=== PATIENT | female | born 1990 | race Two or more races ===

== ENCOUNTER 2024-09-21 18:50 | Emergency (ER) | payer OTHER ==
[~2024-09-21] VITALS: Ht 152.4 cm; Wt 72.6 kg
[2024-09-21] MEDS ORDERED: EYE DROPS15 ML (19:10)
[2024-09-21] MEDS ORDERED: 0.9 % SODIUM CHLORIDE 1,000 ML IV ONE (20:15)
[2024-09-21] MEDS ORDERED: FAMOtidine 10 MG/ML (4ML VIAL) IV ONE (20:15)
[2024-09-21] MEDS ORDERED: ONDANSETRON HCL 2 MG/ML VIAL IV ONE (20:15)
[2024-09-21] MEDS ORDERED: ONDANSETRON HCL 2 MG/ML VIAL ONE (20:32)
[2024-09-21] MEDS ORDERED: FAMOTIDINE/PF 20 MG/2 ML VIAL ONE ×2 (20:33)
[2024-09-21 21:09] LABS: HEMATOCRIT 44.7 % (36.0-45.00); HEMOGLOBIN 15.3 g/dL (12.0-15.00); MEAN CELL VOLUME 88.4 fL (80.00-100.00); MEAN CORPUSCULAR HEMOGLOBIN 30.2 pg (27.00-32.0); MEAN CORPUSCULAR HGB CONC 34.1 g/dl (32.0-36.0); PLATELET COUNT 199 K/uL (150-450); RED BLOOD COUNT 5.05 M/uL (4.00-6.00); RED CELL DISTRIBUTION WIDTH 13.2 % (11.5-14.5)
[2024-09-21] MEDS ORDERED: ZOFRAN8 MG PO (23:13)
[2024-09-21] MEDS ORDERED: PEPCID AC20 MG PO (23:13)
[2024-09-21] MEDS ORDERED: METRONIDAZOLE500 MG PO (23:13)
[2024-09-21] MEDS ORDERED: CIPRO500 MG PO (23:13)
== END 2024-09-21 23:41 | disposition home or self-care (01) ==
LOC: ER 18:53
PROVIDERS: General Practice
DX: K29.70 Gastritis, unspecified, without bleeding (principal); R19.7 Diarrhea, unspecified; Z20.822 Contact with and (suspected) exposure to COVID-19
CPT/HCPCS: 36415; 96365; 99282; J2405; J3490; J7030